=== PATIENT | male | born 1965 | race Caucasian/White ===

== ENCOUNTER → 2016-11-26 | Day surgery (SDC) | payer OTHER ==
[~2016-11-26] VITALS: Ht 177.8 cm; Wt 90.9 kg
[~2016-11-26] MED LIST: Bupivacaine-MPF 0.5% 30 mL Inj INFILTRATE ONE; CeFAZolin 2 Gm/50 mL D5W Duplex Bag IV ONE; Dexamethasone 4 mg/mL Inj IVPUSH PRN; Dexamethasone 4 mg/mL Inj ONE; EPHEDrine Sulfate 50 mg/mL Inj IVPUSH PRN; EPHEDrine/NS 5 mg/mL 5 mL Syringe ONE; HYDROmorphone 1 mg/mL Inj IVPUSH PRN; Lactated Ringer's 1,000 ML IV ONE; Lactated Ringer's 1,000 ML IV SCH; Lactated Ringer's 500 ML IV PRN; MetoCLOpramide 5 mg/mL 2 mL Inj IVPUSH PRN; NO HOME MEDICATIONS; Ondansetron 2 mg/mL 2 mL Inj IVPUSH PRN; Ondansetron 2 mg/mL 2 mL Inj ONE; Phenylephrine 10,000 mCg/mL Inj IVPUSH PRN; Propofol 10,000 mCg/mL 20 mL Inj ONE; fentaNYL-PF 50 mCg/mL 2 mL Inj IVPUSH PRN; fentaNYL-PF 50 mCg/mL 2 mL Inj ONE; oxyCODONE-Acetamin 5-325 mg Tablet PO PRN
[2016-11-26 12:13] VITALS: BP 122/66; PULSE 62; RESP 16; O2SAT 96
--- NOTE | 2016-11-26 14:33 | PCM.HPANE ---
Patient Data Surgeon Admitting Provider: Attending Provider:Jonathan Segura MD Primary Care Physician:Keyshawn Other Provider:Mars Pierce Anesthesia Reason for Visit Right Thigh Subcutaneous Mass Ht/WT & BMI Height (Feet): 5 Height (Inches): 10 Weight (Kilograms): 90.9 Body Mass Index 28.00 Allergies Coded Allergies: No Known Allergies (Unverified , 11/26/16) Past Anesthesia History Anesthesia History: Denies:: Abnormal Airway, Anesthesia Reactions, Difficult Intubation, Fam Anesthesia Reaction, Fam Malignant Hypertherm, Malignant Hyperthermia Diabetes History Hx Diabetes?: No MRSA MRSA: No Medications Home Meds Incl Beta Sarah: No Reported Medications [No Home Medications] No Conflict Check 11/26/16 History History of ENT Problems?: No HEENT History: Positive for:: Hearing Problem Denies:: Abnormal Airway Cataracts Difficult Intubation Dysphagia Glaucoma Sinus Problem TMJ Denture Type: None Teeth Condition: Broken Teeth Other HEENT Pertinent History: Chipped upper incisors Hx of Heart Problems?: No Cardiovascular History: Denies:: AICD Abdominal Aortic Aneurism Atrial Fibrillation Chest Pain Congestive Heart Failure Coronary Artery Disease Edema Heart Murmur Hypertension Irregular Heartbeat Pacemaker Peripheral Vascular Hx of Respiratory Problem?: No Respiratory History: Denies:: Asthma COPD Emphysema Oxygen Administration Pneumonia Tuberculosis Use of C-PAP Machine Hx Neurologic Problems?: No Neurological History: Denies:: CVA Headaches Multiple Sclerosis Parkinson's Disease Seizures Hx of GI Problems?: No Gastrointestinal History: Positive for:: Gastroesphageal Reflux Other GI Pertinent History: Mild GERD Hx of Problems?: No Genitourinary History: Denies:: Kidney Stones Urinary Tract Infection Male Hx: Denies:: Prostate Problems Scrotal Mass Skin History: Positive for:: History Skin Disorders? (lipoma inner right thigh - current admission problem) Denies:: Pressure Ulcers Hx Musculoskeletal Problems?: No Musculoskeletal History: Positive for:: Back Injury (hx of back pain- ) Denies:: Fibromyalgia Joint Replacement Musculoskeletal Trauma Myasthenia Gravis Osteoarthritis Rheumatoid Arthritis Hx of Psycho/Social Problems?: No Psycho Social History: Denies:: Anxiety Hx Depression Hx Surgeries?: Yes (wisdom teeth) Hx Any Other Health Problems?: Yes Other History: Denies:: Cancer Thyroid Disease History Blood Transfusions: Positive for:: Accept Blood Products? Denies:: Blood Transfusions Hx Diabetes: No Hx Alcohol Use: NoHx Substance Use: NoHave You Smoked inLast 12 mo: No (over a year ago ) Stop/Bang S-Snoring: Do You Snore Loudly: Yes T-Tired: feel tired, fatigued: No O-Obsered: Observed not breath: No P-Blood Pressure: treated: No B- Body Mass Index > 35 kg/m2: No A- Age over 50: No N- Neck Large Circumference: No G- Gender Male: Yes FABIEN Total Score: 2 Risk Assessment Category Category 1A: Patient has history of documented sleep apnea, and HAS NOT received any narcotic, sedative or anesthesia administration during this stay. Category 1B: Patient has history of documented sleep apnea, and HAS received any narcotic , sedative or anesthesia administration during this stay Category 2: Patient has SUSPECTED Obstructive Sleep Apnea, and HAS received any narcotic , sedative or anesthesia administration during this stay. Category 3: Patient has SUSPECTED Obstructive Sleep Apnea and HAS NOT received narcotic, sedative or anesthesia administration during this stay. Category 4: Outpatient in Procedural Areas with known sleep apnea or who screen positive for High Risk via the STOP/BANG questionnaire. Exam Exam Vital Signs Vital Signs Date Time Temp Pulse Resp B/P Pulse Ox O2 Delivery O2 Flow Rate FiO2 11/26/16 12:13 36.5 62 16 122/66 96 Room Air General Appearance: Alert, Oriented X3, Cooperative, No Acute Distress HEENT/AIRWAY: MP 1 Lungs: Normal Air Movement Heart: Regular Rate/Rhythm Meds/Labs/Diagnostics Admission Meds Current Medications Lactated Ringer's (Lr) 1,000 ml @ ud STK-MED ONCE IV Last administered on 11/26t 12:30; Start 11/26/16 at 12:30; Stop 11/26/16 at 12:53; Status DC Plan Impression Patient chart reviewed, patient interviewed and anesthestic plan with risks, benefits, and alternatives discussed, and informed consent obtained. NPO per Anesth. Guidelines: Yes ASA Physical Status: ASA1 Normal Healthy Anesthetic Plan: GA Bene/Risks/Altern/Consents: Yes HP Complete Prior to Induction: Yes Zaire Alberto MD Nov 26, 2016 14:33
[2016-11-26] MEDS: CeFAZolin 2 Gm/50 mL D5W IV Premix IV ONE ×3 (16:10→16:44)
--- NOTE | 2016-11-26 17:11 | PCM.DISURG ---
Surgical Discharge Instruction Date of Service Nov 26, 2016 Dates of Hospitalization Date of Hospital Admission Providers Admitting Physician: Primary Care Physician: Keyshawn Attending Physician: Jonathan Segura MD Diet Discharge Diet: No restrictions Activity Discharge Activity-General: Be up and about, Activity as pain allows, No driving while taking narcotic Dressing and Incisional Care Dressing Care: Allow Steri Stripes to fall off, Remove outer dressing after 24 hrs Hygiene: May shower after (24 hours), DO NOT soak incision under water, NO bathtub, hot tub or whirlpool Follow Up Plan Follow Up Plan Call at any time with questions or concerns. Call your provider for: Fever, Chills, Wound redness, Increasing wound pain, Discharge @ incision, pus discharge Esdras Christy MD Nov 26, 2016 17:11
[2016-11-26 17:27] VITALS: BP 117/64; PULSE 84; RESP 19; O2SAT 99
[2016-11-26 17:30] VITALS: BP 117/71; PULSE 84; RESP 15; O2SAT 98
[2016-11-26 17:40] VITALS: BP_SYST 113; BP_SYST 118; BP_DIAS 66; BP_DIAS 70; PULSE 68; PULSE 70; RESP 14; RESP 15; O2SAT 98
[2016-11-26 18:00] VITALS: BP 116/70; PULSE 70; RESP 15; O2SAT 99
--- NOTE | 2016-11-26 18:08 | OP ---
[address] [address] OPERATIVE REPORT PATIENT: CHRIS PEDERSEN : 1965 MR#: [id number] ADMIT: 11/26/2016 JOB ID: [id number] DATE OF SURGERY: 11/26/2016 PREOPERATIVE DIAGNOSIS(ES): Right thigh subcutaneous mass, likely lipoma. POSTOPERATIVE DIAGNOSIS(ES): Right thigh subcutaneous mass, likely lipoma. PROCEDURE PERFORMED: Excision of right thigh subcutaneous mass. SURGEON: Jonathan Segura MD SANDBLASTER STONE: Aleksandra Chauhan DO COMPLICATIONS: None. CONDITION OF THE PATIENT: Stable. INDICATIONS: The patient is a 51-year-old gentleman who noticed a swelling on his inner right thigh a few years ago. Over the last few months he felt it was getting bigger and causing him discomfort when he sat down, prompting him to go to Urgent Care. He had an ultrasound done which showed a 9.9 cm lobulated mass consistent with lipoma. After discussing the risks, benefits, and alternatives, he is here today for resection. PROCEDURE DETAILS: He was placed in the supine position and underwent smooth induction of general anesthesia. He was then placed in the lithotomy position and the right thigh was prepped and draped in the usual sterile fashion. A surgical time-out was undertaken using safety checklist, and all were in agreement. I then made an incision along the middle of the palpable mass and divided the skin and subcutaneous tissue sharply until I got down to the lobulated lipoma. It was multilobulated and I dissected it off from the subcutaneous tissue with a combination of blunt and sharp dissection, and the mass ended up coming out in pieces, but with what appeared to be a good plane of separation between it and the normal subcutaneous fat. The dimension measured to be 8 x 4 x 3 cm. After removing all the abnormal looking adipose tissue from this area, I ensured hemostasis and closed the wound in layers of 3-0 Vicryl followed by 4-0 Monocryl. Steri-Strips and a sterile dressing were applied. The patient was recovered from anesthesia and was taken to the recovery room in stable condition. NIKOLAI
--- NOTE | 2016-11-27 07:30 | PCM.ANEP1 ---
Post Anesthesia PACU Phase 1 Assessment Anesthetic Administered: GA Level of Alertness: Awake, talking Pain: No Nausea or Vomiting: No CV Function & Hydration Stable: Yes Airway Device: None Oxygen Delivery: Room Air Lungs: Normal Air Movement PACU Phase 2 Assessment Complications: No Follow up Care: N/A Patient Instructions Provided: N/A Zaire Alberto MD Nov 27, 2016 07:30
--- NOTE | 2016-12-04 15:04 | PATH ---
SURGICAL PATHOLOGY Attending Physician:Jonathan Segura MD CASE STATUS: Signed Out PATIENT NAME: CHRIS PEDERSEN PID: [id number] : 1965 DATE COLLECTED:11/26/2016 00:00 SPECIMEN: Mass, NOS CLINICAL HISTORY: RIGHT THIGH SUBCUTANEOUS MASS 1). 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 See comment. - Pending consultation from the [facility]. COMMENT: The histologic sections demonstrate an adipocytic neoplasm with areas of spindle cells in a fibrous stroma with likely ropey collagen, few scattered lipoblasts are identified. Rare cells with nuclear hyperchromasia are identified. There is no definite mitosis or areas of necrosis. The differential diagnosis is a spindle cell lipoma versus a lipoma like liposarcoma/ well differentiated liposarcoma. The case will be sent to the [facility] for a second opinion and the results will be reported in an addendum. ICD10: D17.1 GROSS DESCRIPTION: The specimen is received in one formalin filled container labeled with the patient's name, sublabeled "right thigh subcutaneous mass" and consists of 3 yellow-aguilar portions of soft tissue which aggregate to 9.0 x 5.0 x 1.5 CM manufacturing sales representative sections are submitted in 10 cassettes. 11/27/2016DC ICD-9 CODES: CPT CODES: 1: 12445 PROCEDURE/ADDENDA: Addendum SPI Addendum Diagnosis {Not Entered} Addendum Comment Addendum Reason To report the results of consultation from the [facility]. Final diagnosis: Right Thigh, Subcutaneous Mass, Excision: - Mature adipose tissue, consistent with lipoma (9 cm per gross description). - See comment. Comment:The case was sent to the [facility] to rule out an atypical lipomatous tumor. Per outside report the neoplasm is negative for MDM2 gene amplification by FISH studies, arguing against an atypical lipomatous tumor/ well-differentiated liposarcoma. The case was reviewed by Dr. Angelica Carney and Dr. Wan Soto at the [facility]. For a detailed description of the report please refer to accession number [id number]. Electronically Signed Out Ronnie Madison MD Electronically Signed Out Ronnie Madison MD [facility] [address], [place] [address] Technical component performed at [facility], [address], [place], [address]
== END | disposition home or self-care (01) ==
LOC: SAS 11:48
PROVIDERS: ATTEND Student in an Organized Health Care Education/Training Program
DX: D17.23 Benign lipomatous neoplasm of skin and subcutaneous tissue of right leg (principal)
CPT/HCPCS: 11406; 12034; 88305; J0690; J1100; J1885; J2250; J2405; J2704; J3010; J7120